=== PATIENT | female | born 1975 | race African-American/Black ===

== ENCOUNTER 2016-03-30 13:31 | Emergency (ER) | payer OTHER ==
[2016-03-30 13:46] VITALS: BP 90/67; PULSE 98; TEMP 99.9
[2016-03-30] MEDS ORDERED: IBUPROFEN 400 MG TABLET (FP) PO ONE ×2 (15:14→15:38)
--- NOTE | 2016-03-30 15:20 | PDOC ---
History of Present Illness - General Chief Complaint: Cold Symptoms Stated Complaint: FEVER, BODY ACHES Time Seen by Provider: 03/30/16 15:14 History Source: Patient - History of Present Illness Timing/Duration: reports: constant Associated Symptoms: reports: fever/chills, nasal congestion, nasal drainage. denies: cough, earache, facial pain, headache, lightheadedness, muscle aches, shortness of breath, sore throat, wheezing Past History - Past Medical History Allergies/Adverse Reactions: Allergies Allergy/AdvReac Type Severity Reaction Status Date / Time No Known Allergies Allergy Verified 03/30/16 13:46 Home Medications: Ambulatory Orders NK [No Known Home Medication] 03/23/16 - Surgical History Abdominal Surgery: Yes - Immunization History Immunization Up to Date: Yes (no flu shot) - Psycho/Social/Smoking Cessation Hx Anxiety: No Suicidal Ideation: No Smoking History: Never smoked Hx Alcohol Use: Yes (OCCASIONALLY) Drug/Substance Use Hx: No Substance Use Type: Alcohol Review of Systems - Review of Systems Constitutional: Yes: Fever HEENTM: Yes: Nose Congestion. No: Ear Pain, Throat Pain Respiratory: No: Cough, Shortness of Breath ABD/GI: No: Diarrhea, Nausea, Vomiting *Physical Exam - Vital Signs Last Vital Signs Temp Pulse Resp BP Pulse Ox 99.9 F H 98 H 18 90/67 98 03/30/16 13:44 03/30/16 13:44 03/30/16 13:44 03/30/16 13:44 03/30/16 13:44 - Physical Exam General Appearance: Yes: Appropriately Dressed. No: Apparent Distress HEENT: positive: Normal ENT Inspection, Normal Voice. negative: Scleral Icterus (R), Scleral Icterus (L), Muffled/Hoarse voice Neck: positive: Supple. negative: Lymphadenopathy (R), Lymphadenopathy (L) Respiratory/Chest: positive: Lungs Clear, Normal Breath Sounds. negative: Respiratory Distress Cardiovascular: positive: Regular Rate, S1, S2 Gastrointestinal/Abdominal: positive: Soft. 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 On initial visit 03/23, was neg for influenza and strep. Returned 03/27 for persistent sxs and had neg labs/ua/cxr. States she was to return to work today but had fever of 104 this am and contacted her job who told her to return to ED for additional work note. Pt states besides fever, her only other symptoms is congestion and rhinorrhea. Pt in NAD w/ low grade temp in ED w/ unremarkable exam otherwise. Dc w/ supportive treatment and PMD f/u 03/30/16 15:55 *DC/Admit/Observation/Transfer Diagnosis at time of Disposition: Fever Qualifiers: Fever type: unspecified Qualified Code(s): R50.9 - Fever, unspecified - Discharge Dispostion Disposition: HOME Condition at time of disposition: Stable - Patient Instructions Printed Discharge Instructions: DI for Viral Syndrome Additional Instructions: Rest drink plenty of fluids and take motrin or tylenol as needed - Post Discharge Activity Work/School Note: Back to Work
== END 2016-03-30 15:55 | disposition home or self-care (01) ==
LOC: JERFT 13:31
DX: B34.9 Viral infection, unspecified (principal); R50.81 Fever presenting with conditions classified elsewhere
CPT/HCPCS: 99281-25

== ENCOUNTER 2019-02-26 13:12 | Emergency (ER) | payer OTHER ==
[2019-02-26 13:20] VITALS: BP 118/80; PULSE 86; TEMP 98.2; BMI 20.7
[2019-02-26] MEDS ORDERED: LORATADINE 10 MG TABLET PO ONE (13:49)
[2019-02-26] MEDS ORDERED: ERYTHROMYCIN 0.5% OPHTHALMIC OINTMENT 3.5 GM TUBE OD ONE (13:49)
--- NOTE | 2019-02-26 14:09 | PDOC ---
History of Present Illness - General Chief Complaint: Edema Stated Complaint: SWELLING TO FACE Time Seen by Provider: 02/26/19 13:30 History Source: Patient Exam Limitations: No Limitations - History of Present Illness Is this a multiple visit Asthma Patient?: No Associated Symptoms: reports: denies symptoms, fever/chills, nausea/vomiting, shortness of breath Past History - Travel Traveled outside of the country in the last 30 days: No Close contact w/someone who was outside of country & ill: No - Past Medical History Allergies/Adverse Reactions: Allergies Allergy/AdvReac Type Severity Reaction Status Date / Time No Known Allergies Allergy Verified 03/30/16 13:46 Home Medications: Ambulatory Orders Loratadine 10 mg PO DAILY 7 Days #7 tablet 02/26/19 COPD: No Other medical history: Lupus - Surgical History Abdominal Surgery: Yes - Immunization History Immunization Up to Date: Yes (no flu shot) - Psycho Social/Smoking Cessation Hx Smoking History: Never smoked Hx Alcohol Use: Yes (OCCASIONALLY) Drug/Substance Use Hx: No Substance Use Type: Alcohol Review of Systems - Review of Systems Is the patient limited Spanish proficient: No Constitutional: No: Chills, Fever HEENTM: Yes: Other (b/l eye lid swelling R>L). No: Eye Pain, Tearing, Recent change in vision, Double Vision, Ear Pain Respiratory: No: Shortness of Breath, Wheezing Cardiac (ROS): No: Chest Pain, Lightheadedness, Palpitations Neurological: No: Numbness, Tingling, Weakness, Dizziness Psychiatric: No: Anxiety, Depression, Frequent Crying, Stressors, Sleep Pattern Change, Mood Swings, Change in Appetite *Physical Exam - Vital Signs Last Vital Signs Temp Pulse Resp BP Pulse Ox 98.2 F 86 19 118/80 99 02/26/19 13:17 02/26/19 13:17 02/26/19 13:17 02/26/19 13:17 02/26/19 13:17 - Physical Exam General Appearance: Yes: Nourished HEENT: positive: EOMI, DAVID, TMs Normal, Other (b/l eye lid swelling, symmetrical face, no swelling) Respiratory/Chest: positive: Lungs Clear, Normal Breath Sounds Cardiovascular: positive: Regular Rhythm, Regular Rate, S1, S2 Gastrointestinal/Abdominal: positive: Soft Extremity: positive: Normal Capillary Refill Integumentary: positive: Normal Color Neurologic: positive: gut dropper II-XII NML intact, Fully Oriented, Alert, Normal Mood/ Affect, Normal Response, Motor Strength 07/31 Medical Decision Making - Medical Decision Making 02/26/19 14:05 43 years old female with no prior medical history presents with bilateral eyelid swelling after crying all night. Patient reports she has some stressful situation at work and woke up this morning eyelid swelling and tightness in her face Patient denies any visual disturbance, headaches, slurred speech,chest pain, shortness of breath, On examination non-focal examination there is evidence of bilateral eyelid swelling, no infection 02/26/19 17:22 Discharge - Discharge Information Problems reviewed: Yes Clinical Impression/Diagnosis: Eyelid edema Qualifiers: Laterality: right Qualified Code(s): H02.843 - Edema of right eye, unspecified eyelid Condition: Stable Disposition: HOME - Admission No - Additional Discharge Information Prescriptions: Loratadine 10 mg PO DAILY 7 Days #7 tablet Prescription Drug Monitoring Program (I-STOP) results: I-STOP not reviewed - Follow up/Referral - Patient Discharge Instructions Additional Instructions: Take medication as prescribed. Apply ice to the eyelids. Return to the emergency room if worsening symptoms occurs - Post Discharge Activity Work/Back to School Note: Back to Work
[2019-02-26] MEDS ORDERED: ERYTHROMYCIN 0.5% OPHTHALMIC OINTMENT 3.5 GM TUBE ONE (14:12)
[2019-02-26] MEDS ORDERED: LORATADINE 10 MG TABLET ONE (14:13)
== END 2019-02-26 14:25 | disposition home or self-care (01) ==
LOC: JERFT 13:12
DX: H02.843 Edema of right eye, unspecified eyelid (principal); M32.9 Systemic lupus erythematosus, unspecified
CPT/HCPCS: 99281-25

== ENCOUNTER 2020-05-27 08:56 | Emergency (ER) | payer OTHER ==
[2020-05-27 09:06] VITALS: BMI 21.6
[2020-05-27 11:16] LABS: BASO % 0.4 % (0-2.0); HEMATOCRIT 36.9 % (32.4-45.2); HEMOGLOBIN 12.6 GM/dL (10.7-15.3); MCH 28.5 pg (25.7-33.7); MCHC 34.1 g/dl (32.0-36.0); MEAN CELL VOLUME 83.5 fl (80-96); MEAN PLT VOLUME 8.9 fl (7.5-11.1); MONO % 4.8 % (3.8-10.2); NEUT % 74.8 % (42.8-82.8); PLATELET COUNT 245 K/MM3 (134-434); RBC 4.42 M/mm3 (3.60-5.2); RDW 14.6 % (11.6-15.6); WHITE BLOOD COUNT 8.4 K/mm3 (4.0-10.0)
[2020-05-27 11:35] LABS: POTASSIUM 4.3 mmol/L (3.5-5.1)
[2020-05-27 11:37] LABS: CALCIUM 9.1 mg/dL (8.5-10.1)
[2020-05-27 11:38] LABS: INR 1.24 (0.83-1.09); PROTHROMBIN TIME (PATIENT) 14.9 SEC (9.7-13.0)
[2020-05-27 11:40] LABS: CREATININE 0.8 mg/dL (0.55-1.3)
[2020-05-27 11:41] LABS: BILIRUBIN,TOTAL 0.4 mg/dL (0.2-1)
[2020-05-27 11:44] LABS: HCG,QUALITATIVE URINE Negative
[2020-05-27 11:52] LABS: EPI CELLS >36 /uL (0-25.1); HYALINE CASTS 11 /uL (0-3.1); PH,URINE 5.5 (5.0-8.0); URINE APPEARANCE CLOUDY; URINE BACTERIA 2153 /uL (0-1359); URINE BILIRUBIN NEGATIVE (NEGATIVE); URINE COLOR DK YELLOW; URINE GLUCOSE (UA) NEGATIVE (NEGATIVE); URINE KETONE 1+ (NEGATIVE); URINE LEUK ESTERASE NEGATIVE (NEGATIVE); URINE NITRITE NEGATIVE (NEGATIVE); URINE PROTEIN 2+ (NEGATIVE); URINE RBC 10 /uL (0-23.9); URINE UROBILINOGEN 0.2 mg/dL (0.2-1.0)
[2020-05-27 12:57] LABS: URINE CRYSTALS FEW /hpf
[2020-05-27 14:02] VITALS: BP 102/64; PULSE 93
[2020-05-27] MEDS ORDERED: ACETAMINOPHEN 1000 MG/100 ML VIAL (NON FORMULARY) IVPB ONE (14:08)
[2020-05-27] MEDS ORDERED: CEFTRIAXONE 1 GM in DEXTROSE 5%-WATER - 100 ML IVPB ONE (14:12)
[2020-05-27] MEDS ORDERED: ACETAMINOPHEN INJECTION 100 ML IVPB ONE (14:25)
[2020-05-27] MEDS ORDERED: CEFTRIAXONE 1 GM/50 ML BAG ONE (14:25)
[2020-05-27 17:08] VITALS: TEMP 100
== END 2020-05-27 17:08 | disposition home or self-care (01) ==
LOC: JER 08:56
PROC: 3E0333Z Introduction of Anti-inflammatory into Peripheral Vein, Percutaneous Approach (ICD-10-PCS; principal; 2020-05-27)
PROC: 3E03329 Introduction of Other Anti-infective into Peripheral Vein, Percutaneous Approach (ICD-10-PCS; 2020-05-27)
DX: H02.841 Edema of right upper eyelid (principal); H02.844 Edema of left upper eyelid
CPT/HCPCS: 36415; 80053; 81003; 84703; 85025; 85610; 85651; 86140; 86160; 86225; 87040; 87086; 87186; 99284-25; C9803; J0131; U0003

== ENCOUNTER 2020-07-31 23:18 | Emergency (ER) | payer OTHER ==
[2020-07-31 23:32] VITALS: BMI 226.5
[2020-08-01] MEDS ORDERED: LACTATED RINGERS SOLUTION 1000 ML INFUS.BAG IV ONE ×2 (00:24→01:58)
[2020-08-01 01:03] LABS: BASO % 0.1 % (0-2.0); HEMATOCRIT 39.5 % (32.4-45.2); HEMOGLOBIN 13.3 GM/dL (10.7-15.3); LYMPH % 4.4 % (8-40); MCH 28.1 pg (25.7-33.7); MCHC 33.6 g/dl (32.0-36.0); MEAN CELL VOLUME 83.4 fl (80-96); MEAN PLT VOLUME 8.7 fl (7.5-11.1); MONO % 6.3 % (3.8-10.2); NEUT % 89.2 % (42.8-82.8); PLATELET COUNT 231 K/MM3 (134-434); RBC 4.74 M/mm3 (3.60-5.2); RDW 15.7 % (11.6-15.6); WHITE BLOOD COUNT 16.9 K/mm3 (4.0-10.0)
[2020-08-01 01:11] LABS: INR 1.38 (0.83-1.09); PROTHROMBIN TIME (PATIENT) 16.5 SEC (9.7-13.0)
[2020-08-01 01:13] LABS: ACTIVATED PTT 29.5 SECONDS (25.2-36.5)
[2020-08-01 01:22] LABS: CHLORIDE 103 mmol/L (98-107); SODIUM 136 mmol/L (136-145)
[2020-08-01 01:23] LABS: CALCIUM 8.4 mg/dL (8.5-10.1)
[2020-08-01 01:24] LABS: ALBUMIN 3.4 g/dl (3.4-5.0); ANION GAP 8 MMOL/L (8-16); BLOOD UREA NITROGEN 17.1 mg/dL (7-18); CO2 25 mmol/L (21-32); GLUCOSE,RANDOM 96 mg/dL (74-106)
[2020-08-01 01:27] LABS: CREATININE 1.1 mg/dL (0.55-1.3); SGOT/AST 15 U/L (15-37); SGPT/ALT 15 U/L (13-61)
[2020-08-01 01:29] LABS: BILIRUBIN,TOTAL 0.6 mg/dL (0.2-1); TOT PROT 8.3 g/dl (6.4-8.2)
[2020-08-01 01:30] LABS: ALK PHOS 79 U/L (45-117)
[2020-08-01] MEDS ORDERED: IBUPROFEN 600 MG TABLET (FP) PO ONE ×2 (01:59→02:03)
[2020-08-01 02:25] LABS: EPI CELLS 22 /uL (0-25.1); HYALINE CASTS 6 /uL (0-3.1); URINE APPEARANCE TURBID; URINE BACTERIA >9,000 /uL (0-1359); URINE BILIRUBIN NEGATIVE (NEGATIVE); URINE COLOR YELLOW; URINE GLUCOSE (UA) NEGATIVE (NEGATIVE); URINE KETONE TRACE (NEGATIVE); URINE LEUK ESTERASE 2+ (NEGATIVE); URINE NITRITE POSITIVE (NEGATIVE); URINE PROTEIN 2+ (NEGATIVE); URINE RBC 32 /uL (0-23.9); URINE UROBILINOGEN 0.2 mg/dL (0.2-1.0); URINE WBC 3787 /uL (0-25.8)
[2020-08-01] MEDS ORDERED: CEFTRIAXONE 1 GM in DEXTROSE 5%-WATER - 100 ML IVPB ONE (02:28)
[2020-08-01] MEDS ORDERED: CEFTRIAXONE 1 GM/50 ML BAG ONE (02:39)
[2020-08-01 02:55] VITALS: BP 107/64; PULSE 75; TEMP 98.4
== END 2020-08-01 03:41 | disposition home or self-care (01) ==
LOC: JER 23:18
DX: N39.0 Urinary tract infection, site not specified (principal)
CPT/HCPCS: 36415; 71045-TC-FY; 80053; 81003; 83605; 84484; 84703; 85025; 85610; 85730; 87040; 87086; 87186; 87804; 87880; 93005; 93010; 99285-25; C9803; U0003; U0005

== ENCOUNTER 2020-08-01 13:25 | Emergency (ER) | payer OTHER ==
[2020-08-01 13:30] VITALS: BP 111/67; BMI 22.6
[2020-08-01] MEDS ORDERED: ACETAMINOPHEN 500 MG TABLET (FP) PO ONE (13:39)
[2020-08-01] MEDS ORDERED: SODIUM CHLORIDE 1,000 ML IV STA (13:39)
[2020-08-01] MEDS ORDERED: ACETAMINOPHEN 500 MG TABLET (FP) ONE (13:48)
[2020-08-01 15:07] VITALS: PULSE 102; TEMP 99.1
== END 2020-08-01 15:10 | disposition home or self-care (01) ==
LOC: JERFT 13:25
PROC: 3E03329 Introduction of Other Anti-infective into Peripheral Vein, Percutaneous Approach (ICD-10-PCS; principal; 2020-08-01)
PROC: 3E0337Z Introduction of Electrolytic and Water Balance Substance into Peripheral Vein, Percutaneous Approach (ICD-10-PCS; 2020-08-01)
DX: N10 Acute pyelonephritis (principal)
CPT/HCPCS: 99284-25

== ENCOUNTER 2021-02-14 16:49 | Emergency (ER) | payer OTHER ==
[2021-02-14 17:17] VITALS: TEMP 98.9; BMI 22.1
[2021-02-14] MEDS ORDERED: ONDANSETRON 4 MG TABLET PO ONE (18:28)
[2021-02-14] MEDS ORDERED: ONDANSETRON 4 MG/2 ML VIAL IVPB ONE (18:42)
[2021-02-14] MEDS ORDERED: methylPREDNISolone NA SUCC 125 MG/2 ML VIAL IVPUSH ONE (18:42)
[2021-02-14] MEDS ORDERED: methylPREDNISolone NA SUCC 125 MG/2 ML VIAL ONE (19:01)
[2021-02-14] MEDS ORDERED: ONDANSETRON 4 MG/2 ML VIAL ONE (19:01)
[2021-02-14 19:46] LABS: EPI CELLS 32 /uL (0-25.1); HYALINE CASTS 13 /uL (0-3.1); PH,URINE 5.5 (5.0-8.0); URINE APPEARANCE CLOUDY; URINE BACTERIA 127 /uL (0-1359); URINE BILIRUBIN 1+ (NEGATIVE); URINE COLOR DK YELLOW; URINE GLUCOSE (UA) NEGATIVE (NEGATIVE); URINE KETONE 2+ (NEGATIVE); URINE LEUK ESTERASE NEGATIVE (NEGATIVE); URINE NITRITE NEGATIVE (NEGATIVE); URINE PROTEIN 2+ (NEGATIVE); URINE RBC 3 /uL (0-23.9)
[2021-02-14] MEDS ORDERED: SODIUM CHLORIDE 0.9% 500 ML INFUS.BAG IV ONE (20:04)
[2021-02-14 20:28] LABS: BASO % 0.1 % (0-2.0); HEMATOCRIT 36.3 % (32.4-45.2); HEMOGLOBIN 12.2 GM/dL (10.7-15.3); MCHC 33.7 g/dl (32.0-36.0); MEAN PLT VOLUME 8.3 fl (7.5-11.1); MONO % 3.1 % (3.8-10.2); NEUT % 86.8 % (42.8-82.8); PLATELET COUNT 401 10^3/uL (134-434); RBC 4.54 M/mm3 (3.60-5.2); RDW 16.3 % (11.6-15.6); WHITE BLOOD COUNT 8.5 K/mm3 (4.0-10.0)
[2021-02-14 20:50] LABS: ALBUMIN 2.7 g/dl (3.4-5.0); BLOOD UREA NITROGEN 11.5 mg/dL (7-18); CALCIUM 8.9 mg/dL (8.5-10.1)
[2021-02-14 20:53] LABS: CREATININE 0.7 mg/dL (0.55-1.3)
[2021-02-14 20:55] LABS: BILIRUBIN,TOTAL 0.4 mg/dL (0.2-1); TOT PROT 7.9 g/dl (6.4-8.2)
[2021-02-14 21:19] VITALS: BP 108/70; PULSE 104
[2021-02-14 23:24] LABS: URINE WBC 65 /uL (0-25.8)
== END 2021-02-14 21:42 | disposition home or self-care (01) ==
LOC: JER 16:49
PROC: 3E033NZ Introduction of Analgesics, Hypnotics, Sedatives into Peripheral Vein, Percutaneous Approach (ICD-10-PCS; principal; 2021-02-14)
PROC: 3E033GC Introduction of Other Therapeutic Substance into Peripheral Vein, Percutaneous Approach (ICD-10-PCS; 2021-02-14)
DX: M32.9 Systemic lupus erythematosus, unspecified (principal); M79.10 Myalgia, unspecified site; M25.50 Pain in unspecified joint
CPT/HCPCS: 36415; 80053; 81003; 85025; 87086; 99284-25

== ENCOUNTER 2021-02-19 11:36 | Emergency (ER) | payer OTHER ==
[2021-02-19 11:45] VITALS: BP 134/78; PULSE 72; TEMP 97.6; BMI 21.6
[2021-02-19] MEDS ORDERED: SODIUM CHLORIDE 0.9% 500 ML INFUS.BAG IV ONE (12:38)
[2021-02-19 13:19] LABS: BASO % 0.1 % (0-2.0); EOS % 0.1 % (0-4.5); HEMOGLOBIN 11.3 GM/dL (10.7-15.3); LYMPH % 16.8 % (8-40); MCH 27.6 pg (25.7-33.7); MCHC 34.2 g/dl (32.0-36.0); MEAN CELL VOLUME 80.7 fl (80-96); MEAN PLT VOLUME 7.3 fl (7.5-11.1); MONO % 7.6 % (3.8-10.2); NEUT % 75.4 % (42.8-82.8); PLATELET COUNT 532 10^3/uL (134-434); RBC 4.09 M/mm3 (3.60-5.2); RDW 16.5 % (11.6-15.6); WHITE BLOOD COUNT 10.3 K/mm3 (4.0-10.0)
[2021-02-19 13:26] LABS: EPI CELLS 17 /uL (0-25.1); HYALINE CASTS 1 /uL (0-3.1); URINE APPEARANCE CLOUDY; URINE BACTERIA 771 /uL (0-1359); URINE BILIRUBIN NEGATIVE (NEGATIVE); URINE COLOR YELLOW; URINE GLUCOSE (UA) NEGATIVE (NEGATIVE); URINE KETONE NEGATIVE (NEGATIVE); URINE LEUK ESTERASE 1+ (NEGATIVE); URINE NITRITE NEGATIVE (NEGATIVE); URINE PROTEIN NEGATIVE (NEGATIVE); URINE RBC 6 /uL (0-23.9); URINE UROBILINOGEN 0.2 mg/dL (0.2-1.0); URINE WBC 24 /uL (0-25.8)
[2021-02-19 14:19] LABS: ALBUMIN 2.7 g/dl (3.4-5.0); BILIRUBIN,TOTAL 0.5 mg/dL (0.2-1); BLOOD UREA NITROGEN 13.4 mg/dL (7-18); CALCIUM 8.7 mg/dL (8.5-10.1); CREATININE 0.7 mg/dL (0.55-1.3); TOT PROT 7.3 g/dl (6.4-8.2)
== END 2021-02-19 15:19 | disposition home or self-care (01) ==
LOC: JER 11:36
DX: D75.839 Thrombocytosis, unspecified (principal)
CPT/HCPCS: 36415; 80053; 81003; 85025; 99283-25

== ENCOUNTER 2021-12-07 08:54 | Emergency (ER) | payer OTHER ==
[2021-12-07 09:17] VITALS: RESP 18; TEMP 98; BMI 21.9
[2021-12-07] MEDS ORDERED: ACETAMINOPHEN 1000 MG/100 ML BAG IVPB ONE (09:44)
[2021-12-07] MEDS ORDERED: FAMOTIDINE 20 MG/50 ML IVPB 20 MG/50 ML MG IVPB ONE ×2 (09:45→09:50)
[2021-12-07] MEDS ORDERED: MAG HYDROX/AL HYDROX/SIMETH 30 ML UNIT-DOSE CUP PO ONE (09:45)
[2021-12-07] MEDS ORDERED: ACETAMINOPHEN INJECTION 100 ML IVPB ONE (09:49)
[2021-12-07] MEDS ORDERED: MAG HYDROX/AL HYDROX/SIMETH 30 ML UNIT-DOSE CUP ONE (09:49)
[2021-12-07 10:20] LABS: BASO % 0.2 % (0-2.0); EOS % 1.3 % (0-4.5); HEMATOCRIT 34.1 % (32.4-45.2); HEMOGLOBIN 11.7 GM/dL (10.7-15.3); LYMPH % 25.2 % (8-40); MCHC 34.3 g/dl (32.0-36.0); MEAN CELL VOLUME 81.6 fl (80-96); MONO % 11.9 % (3.8-10.2); NEUT % 61.4 % (42.8-82.8); PLATELET COUNT 288 10^3/uL (134-434); RBC 4.18 M/mm3 (3.60-5.2); RDW 17.3 % (11.6-15.6); WHITE BLOOD COUNT 7.3 K/mm3 (4.0-10.0)
[2021-12-07 10:21] LABS: CALCIUM 8.6 mg/dL (8.5-10.1)
[2021-12-07 10:22] LABS: ALBUMIN 3.4 g/dl (3.4-5.0)
[2021-12-07 10:25] LABS: CREATININE 0.7 mg/dL (0.55-1.3)
[2021-12-07 10:27] LABS: BILIRUBIN,TOTAL 0.6 mg/dL (0.2-1); TOT PROT 8.1 g/dl (6.4-8.2)
[2021-12-07 11:05] LABS: ACTIVATED PTT 28.9 SECONDS (25.2-36.5); INR 1.13 (0.83-1.09)
[2021-12-07 13:26] VITALS: BP 96/68; PULSE 82
== END 2021-12-07 13:26 | disposition home or self-care (01) ==
LOC: JER 08:54
PROC: 3E033NZ Introduction of Analgesics, Hypnotics, Sedatives into Peripheral Vein, Percutaneous Approach (ICD-10-PCS; principal; 2021-12-07)
PROC: 3E033GC Introduction of Other Therapeutic Substance into Peripheral Vein, Percutaneous Approach (ICD-10-PCS; 2021-12-07)
DX: R07.9 Chest pain, unspecified (principal)
CPT/HCPCS: 36415; 71045-TC-FY; 80053; 84484; 85025; 85610; 85730; 93005; 93010; 99284-25

== ENCOUNTER 2022-02-05 08:24 | Emergency (ER) | payer OTHER ==
[2022-02-05 08:33] VITALS: BP 122/74; PULSE 90; RESP 18; TEMP 98.2; BMI 23.1
== END 2022-02-05 09:55 | disposition home or self-care (01) ==
LOC: JERFT 08:24
DX: S93.602A Unspecified sprain of left foot, initial encounter (principal); X50.9XXA Other and unspecified overexertion or strenuous movements or postures, initial encounter
CPT/HCPCS: 73630-TC-LT; 99283-25

== ENCOUNTER 2022-12-30 13:07 | Emergency (ER) | payer OTHER ==
[2022-12-30 13:22] VITALS: BP 95/61; PULSE 93; RESP 16; BMI 21.6
[2022-12-30] MEDS ORDERED: SODIUM CHLORIDE 0.9% 500 ML INFUS.BAG IV ONE (14:04)
[2022-12-30] MEDS ORDERED: ACETAMINOPHEN 1000 MG/100 ML BAG IVPB ONE (14:43)
[2022-12-30 15:08] LABS: BASO % 0.2 % (0-2.0); EOS % 0.4 % (0-4.5); HEMOGLOBIN 11.7 GM/dL (10.7-15.3); LYMPH % 7.9 % (8-40); MCH 27.6 pg (25.7-33.7); MCHC 33.5 g/dl (32.0-36.0); MEAN CELL VOLUME 82.5 fl (80-96); MEAN PLT VOLUME 8.3 fl (7.5-11.1); MONO % 7.9 % (3.8-10.2); NEUT % 83.6 % (42.8-82.8); PLATELET COUNT 233 10^3/uL (134-434); RBC 4.24 M/mm3 (3.60-5.2); RDW 15.2 % (11.6-15.6); WHITE BLOOD COUNT 14.3 K/mm3 (4.0-10.0)
[2022-12-30 15:12] LABS: EPI CELLS 2 /uL (0-25.1); HYALINE CASTS 0 /uL (0-3.1); PH,URINE 5.5 (5.0-8.0); URINE APPEARANCE CLOUDY; URINE BACTERIA 5756 /uL (0-1359); URINE BILIRUBIN NEGATIVE (NEGATIVE); URINE COLOR YELLOW; URINE GLUCOSE (UA) NEGATIVE (NEGATIVE); URINE KETONE TRACE (NEGATIVE); URINE LEUK ESTERASE 3+ (NEGATIVE); URINE NITRITE POSITIVE (NEGATIVE); URINE PROTEIN 2+ (NEGATIVE); URINE RBC 30 /uL (0-23.9); URINE WBC 1874 /uL (0-25.8)
[2022-12-30] MEDS ORDERED: ACETAMINOPHEN INJECTION 100 ML IVPB ONE (15:21)
[2022-12-30 15:42] LABS: CALCIUM 8.7 mg/dL (8.5-10.1)
[2022-12-30 15:43] LABS: ALBUMIN 3.1 g/dl (3.4-5.0); BLOOD UREA NITROGEN 15.6 mg/dL (7-18)
[2022-12-30 15:47] LABS: BILIRUBIN,TOTAL 0.4 mg/dL (0.2-1); CREATININE 0.9 mg/dL (0.55-1.3); TOT PROT 8.1 g/dl (6.4-8.2)
[2022-12-30] MEDS ORDERED: CEFTRIAXONE 1,000 MG in DEXTROSE 5%-WATER - 50 ML IVPB ONE (16:07)
[2022-12-30] MEDS ORDERED: CEFTRIAXONE 1 GM/50 ML BAG ONE (16:17)
[2022-12-30 17:20] VITALS: TEMP 99.1
== END 2022-12-30 17:20 | disposition home or self-care (01) ==
LOC: JER 13:07
PROC: 3E03329 Introduction of Other Anti-infective into Peripheral Vein, Percutaneous Approach (ICD-10-PCS; principal; 2022-12-30)
PROC: 3E033NZ Introduction of Analgesics, Hypnotics, Sedatives into Peripheral Vein, Percutaneous Approach (ICD-10-PCS; 2022-12-30)
DX: M79.10 Myalgia, unspecified site (principal); R50.9 Fever, unspecified; R35.0 Frequency of micturition; R51.9 Headache, unspecified; M25.50 Pain in unspecified joint; R11.10 Vomiting, unspecified; N30.00 Acute cystitis without hematuria; Z20.822 Contact with and (suspected) exposure to COVID-19
CPT/HCPCS: 0241U-QW; 36415; 80053; 81003; 85025; 85651; 86140; 87040; 87086; 87186; 99284-25

== ENCOUNTER 2022-12-31 05:12 | Inpatient (IN) | payer OTHER ==
[2022-12-31 05:17] VITALS: BMI 21.6
[2022-12-31] MEDS ORDERED: PIPERACILLIN/TAZOB 4.5 GM 4.5 GM in DEXTROSE 5%-WATER 100 ML IVPB ONE (05:31)
[2022-12-31] MEDS ORDERED: ACETAMINOPHEN 1000 MG/100 ML BAG IVPB ONE (05:32)
[2022-12-31] MEDS ORDERED: SODIUM CHLORIDE 0.9% 500 ML INFUS.BAG IV ONE (05:33)
[2022-12-31] MEDS ORDERED: PIPERACILLIN/TAZOB 4.5 GM 4.5 GM/100 ML BAG IVPB ONE (05:37)
[2022-12-31] MEDS ORDERED: ACETAMINOPHEN INJECTION 100 ML IVPB ONE (05:37)
[2022-12-31 07:21] LABS: BASO % 0.2 % (0-2.0); EOS % 1.5 % (0-4.5); HEMATOCRIT 35.1 % (32.4-45.2); HEMOGLOBIN 11.6 GM/dL (10.7-15.3); MCH 27.7 pg (25.7-33.7); MEAN CELL VOLUME 84.1 fl (80-96); MONO % 10.2 % (3.8-10.2); NEUT % 75.1 % (42.8-82.8); PLATELET COUNT 250 10^3/uL (134-434); RBC 4.17 M/mm3 (3.60-5.2); RDW 15.4 % (11.6-15.6); WHITE BLOOD COUNT 14.6 K/mm3 (4.0-10.0)
[2022-12-31 07:26] LABS: POTASSIUM 3.8 mmol/L (3.5-5.1)
[2022-12-31 07:28] LABS: CALCIUM 8.7 mg/dL (8.5-10.1)
[2022-12-31 07:29] LABS: BLOOD UREA NITROGEN 11.5 mg/dL (7-18)
[2022-12-31 07:31] LABS: CREATININE 0.9 mg/dL (0.55-1.3)
[2022-12-31 07:33] LABS: BILIRUBIN,TOTAL 0.4 mg/dL (0.2-1)
[2022-12-31] MEDS: ACETAMINOPHEN 1000 MG/100 ML BAG IVPB PRN (13:19)
[2022-12-31] MEDS: CEFTRIAXONE 1 GM in DEXTROSE 5%-WATER - 50 ML IVPB SCH (15:06)
[2022-12-31] MEDS ORDERED: LACTATED RINGERS SOLUTION 1000 ML INFUS.BAG IV ONE (20:21)
[2023-01-01] MEDS: ACETAMINOPHEN 1000 MG/100 ML BAG IVPB PRN (01:16)
[2023-01-01] MEDS ORDERED: ENOXAPARIN NA (PORCINE) 40 MG/0.4 ML DISP.SYRIN SQ SCH (10:00)
[2023-01-01] MEDS: HYDROXYCHLOROQUINE SO4 200 MG TABLET (FP) PO SCH (10:39)
[2023-01-01] MEDS: CEFTRIAXONE 1 GM in DEXTROSE 5%-WATER - 50 ML IVPB SCH (10:39)
[2023-01-01] MEDS: ENOXAPARIN NA (PORCINE) 40 MG/0.4 ML DISP.SYRIN SQ SCH (10:40)
[2023-01-01 11:11] LABS: BASO % 0.1 % (0-2.0); EOS % 1.6 % (0-4.5); HEMOGLOBIN 11.3 GM/dL (10.7-15.3); LYMPH % 14.4 % (8-40); MCH 27.8 pg (25.7-33.7); MCHC 33.3 g/dl (32.0-36.0); MEAN CELL VOLUME 83.5 fl (80-96); MEAN PLT VOLUME 8.3 fl (7.5-11.1); MONO % 11.8 % (3.8-10.2); NEUT % 72.1 % (42.8-82.8); PLATELET COUNT 273 10^3/uL (134-434); RBC 4.07 M/mm3 (3.60-5.2); RDW 15.3 % (11.6-15.6); WHITE BLOOD COUNT 10.7 K/mm3 (4.0-10.0)
[2023-01-01 11:42] LABS: POTASSIUM 3.6 mmol/L (3.5-5.1)
[2023-01-01 12:00] LABS: ALBUMIN 2.6 g/dl (3.4-5.0); BLOOD UREA NITROGEN 8.9 mg/dL (7-18)
[2023-01-01 12:01] LABS: PHOSPHOROUS 2.2 mg/dL (2.5-4.9)
[2023-01-01 12:02] LABS: BILIRUBIN,TOTAL 0.6 mg/dL (0.2-1); TOT PROT 7.5 g/dl (6.4-8.2)
[2023-01-01 12:04] LABS: CREATININE 0.7 mg/dL (0.55-1.3)
[2023-01-01 12:06] LABS: CALCIUM 8.4 mg/dL (8.5-10.1); MAGNESIUM 1.9 mg/dL (1.8-2.4)
[2023-01-01] MEDS: ACETAMINOPHEN 325 MG TABLET (FP) PO PRN (15:12)
[2023-01-01] MEDS: VANCOMYCIN/WATER FOR INJ (PEG) 1,000 MG/200 ML BAG IVPB SCH (17:16)
[2023-01-01] MEDS: SODIUM CHLORIDE 1,000 ML IV SCH (17:16)
[2023-01-01] MEDS: PIPERACILLIN/TAZOB 3.375 GM 3.375 GM in DEXTROSE 5%-WATER - 50 ML IVPB SCH (17:21)
[2023-01-02] MEDS: PIPERACILLIN/TAZOB 3.375 GM 3.375 GM in DEXTROSE 5%-WATER - 50 ML IVPB SCH ×3 (01:48→18:08)
[2023-01-02] MEDS: VANCOMYCIN/WATER FOR INJ (PEG) 1,000 MG/200 ML BAG IVPB SCH ×2 (06:13→18:07)
[2023-01-02 09:19] LABS: BASO % 0.4 % (0-2.0); EOS % 3.3 % (0-4.5); HEMATOCRIT 33.9 % (32.4-45.2); LYMPH % 18.9 % (8-40); MCHC 32.6 g/dl (32.0-36.0); MEAN PLT VOLUME 7.9 fl (7.5-11.1); MONO % 13.3 % (3.8-10.2); NEUT % 64.1 % (42.8-82.8); PLATELET COUNT 304 10^3/uL (134-434); RBC 4.08 M/mm3 (3.60-5.2); RDW 15.4 % (11.6-15.6); WHITE BLOOD COUNT 7.3 K/mm3 (4.0-10.0)
[2023-01-02] MEDS: HYDROXYCHLOROQUINE SO4 200 MG TABLET (FP) PO SCH (09:34)
[2023-01-02] MEDS: ENOXAPARIN NA (PORCINE) 40 MG/0.4 ML DISP.SYRIN SQ SCH (09:35)
[2023-01-02 09:44] LABS: POTASSIUM 3.8 mmol/L (3.5-5.1)
[2023-01-02 10:07] LABS: BLOOD UREA NITROGEN 7.4 mg/dL (7-18); CALCIUM 8.6 mg/dL (8.5-10.1)
[2023-01-02 10:08] LABS: ALBUMIN 2.6 g/dl (3.4-5.0)
[2023-01-02 10:11] LABS: CREATININE 0.7 mg/dL (0.55-1.3)
[2023-01-02 10:12] LABS: TOT PROT 7.5 g/dl (6.4-8.2)
[2023-01-02 10:14] LABS: BILIRUBIN,TOTAL 0.3 mg/dL (0.2-1)
[2023-01-02] MEDS: SODIUM CHLORIDE 1,000 ML IV SCH (18:07)
[2023-01-03] MEDS: PIPERACILLIN/TAZOB 3.375 GM 3.375 GM in DEXTROSE 5%-WATER - 50 ML IVPB SCH (02:35)
[2023-01-03] MEDS: VANCOMYCIN/WATER FOR INJ (PEG) 1,000 MG/200 ML BAG IVPB SCH (04:53)
[2023-01-03 09:20] LABS: BASO % 0.4 % (0-2.0); EOS % 4.4 % (0-4.5); HEMATOCRIT 33.1 % (32.4-45.2); HEMOGLOBIN 11.1 GM/dL (10.7-15.3); LYMPH % 21.3 % (8-40); MCHC 33.6 g/dl (32.0-36.0); MEAN CELL VOLUME 83.4 fl (80-96); MEAN PLT VOLUME 7.8 fl (7.5-11.1); MONO % 15.3 % (3.8-10.2); NEUT % 58.6 % (42.8-82.8); PLATELET COUNT 376 10^3/uL (134-434); RBC 3.97 M/mm3 (3.60-5.2); RDW 15.8 % (11.6-15.6); WHITE BLOOD COUNT 6.7 K/mm3 (4.0-10.0)
[2023-01-03 09:34] LABS: POTASSIUM 4.1 mmol/L (3.5-5.1)
[2023-01-03 09:44] LABS: ALBUMIN 2.6 g/dl (3.4-5.0); BLOOD UREA NITROGEN 7.4 mg/dL (7-18); CALCIUM 8.8 mg/dL (8.5-10.1)
[2023-01-03 09:45] LABS: MAGNESIUM 1.7 mg/dL (1.8-2.4)
[2023-01-03 09:47] LABS: CREATININE 0.8 mg/dL (0.55-1.3)
[2023-01-03 09:49] LABS: BILIRUBIN,TOTAL 0.4 mg/dL (0.2-1); TOT PROT 7.6 g/dl (6.4-8.2)
[2023-01-03] MEDS: HYDROXYCHLOROQUINE SO4 200 MG TABLET (FP) PO SCH (10:51)
[2023-01-03] MEDS: ENOXAPARIN NA (PORCINE) 40 MG/0.4 ML DISP.SYRIN SQ SCH (10:52)
[2023-01-03] MEDS: CEFTRIAXONE 1 GM in DEXTROSE 5%-WATER - 50 ML IVPB SCH (10:52)
[2023-01-03] MEDS: ACETAMINOPHEN 325 MG TABLET (FP) PO PRN (22:24)
[2023-01-03] MEDS: SODIUM CHLORIDE 1,000 ML IV SCH (23:57)
[2023-01-04] MEDS: SODIUM CHLORIDE 1,000 ML IV SCH ×2 (02:10→17:15)
[2023-01-04 09:16] LABS: BASO % 0.4 % (0-2.0); EOS % 7.2 % (0-4.5); HEMOGLOBIN 10.8 GM/dL (10.7-15.3); LYMPH % 22.2 % (8-40); MCH 27.3 pg (25.7-33.7); MCHC 32.6 g/dl (32.0-36.0); MEAN CELL VOLUME 83.6 fl (80-96); MEAN PLT VOLUME 7.9 fl (7.5-11.1); MONO % 15.7 % (3.8-10.2); NEUT % 54.5 % (42.8-82.8); PLATELET COUNT 411 10^3/uL (134-434); RBC 3.94 M/mm3 (3.60-5.2); RDW 15.3 % (11.6-15.6); WHITE BLOOD COUNT 6.7 K/mm3 (4.0-10.0)
[2023-01-04 09:52] LABS: BLOOD UREA NITROGEN 7.7 mg/dL (7-18)
[2023-01-04 09:55] LABS: ALBUMIN 2.4 g/dl (3.4-5.0)
[2023-01-04 09:56] LABS: MAGNESIUM 1.9 mg/dL (1.8-2.4)
[2023-01-04 09:58] LABS: CREATININE 0.6 mg/dL (0.55-1.3)
[2023-01-04 10:00] LABS: BILIRUBIN,TOTAL 0.2 mg/dL (0.2-1)
[2023-01-04] MEDS: ENOXAPARIN NA (PORCINE) 40 MG/0.4 ML DISP.SYRIN SQ SCH (10:47)
[2023-01-04] MEDS: HYDROXYCHLOROQUINE SO4 200 MG TABLET (FP) PO SCH (10:47)
[2023-01-04] MEDS: CEFTRIAXONE 1 GM in DEXTROSE 5%-WATER - 50 ML IVPB SCH (10:49)
[2023-01-05] MEDS: SODIUM CHLORIDE 1,000 ML IV SCH ×3 (02:51→18:52)
[2023-01-05] MEDS: HYDROXYCHLOROQUINE SO4 200 MG TABLET (FP) PO SCH (10:13)
[2023-01-05] MEDS: CEFTRIAXONE 1 GM in DEXTROSE 5%-WATER - 50 ML IVPB SCH (10:14)
[2023-01-06] MEDS: SODIUM CHLORIDE 1,000 ML IV SCH (00:04)
[2023-01-06 05:58] VITALS: RESP 16; TEMP 99.1
[2023-01-06 09:02] VITALS: BP 96/66; PULSE 72
[2023-01-06 09:45] LABS: BASO % 0.3 % (0-2.0); EOS % 5.9 % (0-4.5); HEMATOCRIT 31.8 % (32.4-45.2); HEMOGLOBIN 10.4 GM/dL (10.7-15.3); LYMPH % 19.2 % (8-40); MCH 27.2 pg (25.7-33.7); MCHC 32.7 g/dl (32.0-36.0); MEAN CELL VOLUME 83.3 fl (80-96); MEAN PLT VOLUME 7.4 fl (7.5-11.1); NEUT % 64.6 % (42.8-82.8); PLATELET COUNT 485 10^3/uL (134-434); RBC 3.82 M/mm3 (3.60-5.2); RDW 15.1 % (11.6-15.6); WHITE BLOOD COUNT 8.8 K/mm3 (4.0-10.0)
[2023-01-06 10:12] LABS: POTASSIUM 4.1 mmol/L (3.5-5.1)
[2023-01-06 10:17] LABS: ALBUMIN 2.6 g/dl (3.4-5.0); CALCIUM 8.6 mg/dL (8.5-10.1); MAGNESIUM 1.9 mg/dL (1.8-2.4)
[2023-01-06 10:18] LABS: BLOOD UREA NITROGEN 7.7 mg/dL (7-18)
[2023-01-06 10:19] LABS: CREATININE 0.7 mg/dL (0.55-1.3)
[2023-01-06 10:21] LABS: BILIRUBIN,TOTAL 0.2 mg/dL (0.2-1); TOT PROT 7.4 g/dl (6.4-8.2)
[2023-01-06] MEDS: HYDROXYCHLOROQUINE SO4 200 MG TABLET (FP) PO SCH (10:32)
[2023-01-06] MEDS: CEFTRIAXONE 1 GM in DEXTROSE 5%-WATER - 50 ML IVPB SCH (10:32)
== END 2023-01-06 13:16 | disposition home or self-care (01) | DRG 872 ==
LOC: JER 05:12 → JERBED 06:01 → J8W 09:46
PROVIDERS: ADMIT Internal Medicine; ATTEND Nurse Practitioner Family
DX: A41.89 Other specified sepsis (principal); N12 Tubulo-interstitial nephritis, not specified as acute or chronic; I73.00 Raynaud's syndrome without gangrene; M32.9 Systemic lupus erythematosus, unspecified; B96.20 Unspecified Escherichia coli [E. coli] as the cause of diseases classified elsewhere
CPT/HCPCS: 36415; 74177-TC; 80053; 83735; 84100; 84703; 85025; 87040; 93005; 93010; 93306-TC; 99285-25; Q9967

== ENCOUNTER 2024-01-06 12:41 | Emergency (ER) | payer OTHER ==
[2024-01-06 12:53] VITALS: BP 105/76; RESP 20; TEMP 98.4; BMI 21.6
[2024-01-06 13:03] VITALS: PULSE 81
[2024-01-06] MEDS ORDERED: KETOROLAC TROMETHAMINE 30 MG/1 ML VIAL ONE (13:59)
[2024-01-06] MEDS ORDERED: diazePAM 2 MG TABLET ONE (13:59)
[2024-01-06] MEDS: KETOROLAC TROMETHAMINE 30 MG/1 ML VIAL IM ONE (14:04)
[2024-01-06] MEDS: diazePAM 2 MG TABLET PO ONE (14:05)
== END 2024-01-06 15:45 | disposition home or self-care (01) ==
LOC: JER 12:41 → JERFT 12:41 → JER 15:45
PROC: 3E0133Z Introduction of Anti-inflammatory into Subcutaneous Tissue, Percutaneous Approach (ICD-10-PCS; principal; 2024-01-06)
DX: M25.552 Pain in left hip (principal)
CPT/HCPCS: 72170-TC-FY; 73502-TC-LT-FY; 99284-25

== ENCOUNTER 2024-04-14 17:42 | Emergency (ER) | payer OTHER ==
[2024-04-14 17:50] VITALS: BP 135/74; PULSE 102; RESP 20; TEMP 101.4; BMI 21.6
[2024-04-14] MEDS ORDERED: IBUPROFEN 600 MG TABLET (FP) PO ONE (18:58)
[2024-04-14] MEDS: IBUPROFEN 600 MG TABLET (FP) PO ONE (19:01)
[2024-04-14 19:02] LABS: URINE APPEARANCE CLEAR; URINE BILIRUBIN NEGATIVE (NEGATIVE); URINE COLOR YELLOW; URINE GLUCOSE (UA) NEGATIVE (NEGATIVE); URINE KETONE NEGATIVE (NEGATIVE); URINE LEUK ESTERASE NEGATIVE (NEGATIVE); URINE NITRITE NEGATIVE (NEGATIVE); URINE PROTEIN TRACE (NEGATIVE); URINE UROBILINOGEN 0.2 mg/dL (0.2-1.0)
[2024-04-14 19:24] LABS: HCG,QUALITATIVE URINE Negative
== END 2024-04-14 21:31 | disposition home or self-care (01) ==
LOC: JERFT 17:42 → JER 17:42 → JERFT 21:31
DX: R05.1 Acute cough (principal); R50.9 Fever, unspecified; R51.9 Headache, unspecified; R35.89 Other polyuria; M79.10 Myalgia, unspecified site; Z20.822 Contact with and (suspected) exposure to COVID-19
CPT/HCPCS: 0241U-QW; 71046-TC-FY; 81003; 84703; 87086; 99284-25